=== PATIENT | male | born 1970 | race Caucasian/White ===

== ENCOUNTER 2019-02-12 00:05 | Emergency (ER) | payer BC ==
[~2019-02-12] VITALS: Ht 185.4 cm; Wt 88.5 kg
== END 2019-02-12 00:45 | disposition home or self-care (01) ==
LOC: FSED 00:05
DX: M54.2 Cervicalgia (principal); M48.02 Spinal stenosis, cervical region; V89.2XXD Person injured in unspecified motor-vehicle accident, traffic, subsequent encounter
CPT/HCPCS: 99282

== ENCOUNTER 2019-02-28 10:10 | Outpatient (RCR) | payer BC | END 2019-03-02 | LOC: PT 10:10 | PROVIDERS: ATTEND Neurological Surgery | DX: M50.120 Mid-cervical disc disorder, unspecified level (principal) ==

== ENCOUNTER 2021-05-12 21:08 | Emergency (ER) | payer BC ==
[~2021-05-12] VITALS: Ht 185.4 cm; Wt 104.3 kg
[2021-05-12] MEDS ORDERED: TETANUS/DIPHTHERIA TOX ADULT 0.5 ML SYR ONE (22:06)
[2021-05-12] MEDS ORDERED: TETANUS/DIPHTHERIA TOX ADULT 0.5 ML SYR IM ONE (22:30)
== END 2021-05-12 23:13 | disposition home or self-care (01) ==
LOC: FSED 21:42
DX: S61.012A Laceration without foreign body of left thumb without damage to nail, initial encounter (principal); W26.0XXA Contact with knife, initial encounter; Y92.000 Kitchen of unspecified non-institutional (private) residence as the place of occurrence of the external cause; N40.0 Benign prostatic hyperplasia without lower urinary tract symptoms; F32.9 Major depressive disorder, single episode, unspecified; F41.9 Anxiety disorder, unspecified
CPT/HCPCS: 90471; 90714; 99283